=== PATIENT | male | born 1995 | race Caucasian/White ===

== ENCOUNTER 2020-01-29 17:58 | Emergency (ER) | payer SELFPAY ==
[2020-01-29 18:23] VITALS: BP 99/42; PULSE 87; RESP 12; TEMP 35.7; O2SAT 100; BMI 25.9
--- NOTE | 2020-01-29 18:25 | ED_ITS ---
HPI - Alcohol General Chief Complaint: ETOH/Substance Use Stated Complaint: etoh Time Seen by Provider: 01/29/20 18:09 Source: EMS Mode of arrival: EMS Limitations: other ( intoxicated) History of Present Illness HPI narrative: patient has history of PTSD was found intoxicated at home stumbling around and falling no signs of significant head injury was spitting in EMS truck very limited history at this time Related Data Allergies Allergy/AdvReac Type Severity Reaction Status Date / Time No Known Allergies Allergy Verified 01/29/20 18:10 Review of Systems Review of Systems: Yes Unobtainable due to mental status PMFSH Past Medical History Medical History No known health problems Social History Social History Alcohol intake: unknown Smoking Status: Unknown if ever smoked Use of substances other than those prescribed or required for medical reasons: Unknown Physical Exam Vital Signs: Vital Signs: Vital Signs Temp Pulse Resp BP Pulse Ox 01/29/20 21:43 105 H 14 121/65 99 01/29/20 20:18 76 12 102/55 L 99 01/29/20 18:23 96.2 F L 87 12 99/42 L 100 Body Mass Index 25.9 Appearance: Alert. intoxicated. No acute distress. Eyes: Pupils equal, round and reactive to light. ENT: Pharynx normal. head atraumatic normocephalic Neck: Normal inspection. Neck supple. CVS: Normal heart rate and rhythm. Pulses normal. Respiratory: No respiratory distress. Breath sounds normal. Abdomen: Soft and nontender. Skin: Skin warm and dry. Normal skin color. Normal skin turgor. Extremities: No lower extremity edema. Good range of movement Neuro: patient very intoxicated ambulatory in the ER. No motor deficit. Course Course Course Narrative: patient alert oriented relaxed now ambulating in steady gait. Will call his family to take him home patient refused any help to go to detox MDM - Alcohol Lab Data Result diagrams: 01/29/20 19:38 01/29/20 19:37 Labs: Lab Results 01/29/20 01/29/20 01/29/20 Range/Units 19:37 19:37 19:38 WBC 5.6 (4.8-10.8) X10*3/uL RBC 5.47 (4.60-5.80) X10*6/uL Hgb 14.4 (14.0-18.0) g/dl Hct 44.3 (42-52) % MCV 81.0 (80-98) fL MCH 26.3 L (27.0-33.0) pg MCHC 32.5 (31.0-36.0) g/dl RDW 12.3 (11.0-16.0) % Plt Count 246 (160-400) X10*3/uL MPV 9.7 (9.4-12.4) fL Immature Gran % (Auto) 0.2 (0.0-0.4) % Neut % (Auto) 56.8 (45-73) % Lymph % (Auto) 36.0 (20-40) % [place] % (Auto) 6.1 (2-11) % Eos % (Auto) 0.4 (0-4) % Baso % (Auto) 0.5 (0-2) % Lymph # (Auto) 2.0 (1.2-4.9) X10*3/uL [place] # (Auto) 0.3 (0.1-1.2) X10*3/uL Eos # (Auto) 0.0 (0.0-0.4) X10*3/uL Baso # (Auto) 0.0 (0.0-0.2) X10*3/uL Abs Immat Gran (auto) 0.01 (0.00-0.03) X10*3/uL Absolute Neuts (auto) 3.2 (2.0-8.3) X10*3/uL Absolute Nucleated RBC 0.000 (0.0-0.012) X10*3/uL Nucleated RBC % (auto) 0.0 (0.0-0.2) /100WBC Sodium 143 (135-145) mmol/L Potassium 4.1 (3.3-5.1) mmol/l Chloride 106 (96-108) mmol/L Carbon Dioxide 25 (22-29) mmol/L Anion Gap 16 (12-20) BUN 12 (9-16) mg/dL Creatinine 1.40 (0.5-1.4) mg/dL Estim Creat Clear Calc 84.0 Estimated GFR > 60 Random Glucose 98 (60-115) mg/dL Calcium 8.5 (8.4-10.2) mg/dL Magnesium (1.6-2.6) mg/dL Total Bilirubin < 0.2 (0.0-1.0) mg/dL AST 33 (5-37) U/L ALT 42 H (0-40) U/L Alkaline Phosphatase 62 (39-117) U/L Total Protein 7.5 (6.5-8.0) g/dL Albumin 4.8 (3.5-5.0) g/dL Lipase (8-78) U/L Ethyl Alcohol 304 H* mg/dL 01/29/20 Range/Units 19:38 WBC (4.8-10.8) X10*3/uL RBC (4.60-5.80) X10*6/uL Hgb (14.0-18.0) g/dl Hct (42-52) % MCV (80-98) fL MCH (27.0-33.0) pg MCHC (31.0-36.0) g/dl RDW (11.0-16.0) % Plt Count (160-400) X10*3/uL MPV (9.4-12.4) fL Immature Gran % (Auto) (0.0-0.4) % Neut % (Auto) (45-73) % Lymph % (Auto) (20-40) % [place] % (Auto) (2-11) % Eos % (Auto) (0-4) % Baso % (Auto) (0-2) % Lymph # (Auto) (1.2-4.9) X10*3/uL [place] # (Auto) (0.1-1.2) X10*3/uL Eos # (Auto) (0.0-0.4) X10*3/uL Baso # (Auto) (0.0-0.2) X10*3/uL Abs Immat Gran (auto) (0.00-0.03) X10*3/uL Absolute Neuts (auto) (2.0-8.3) X10*3/uL Absolute Nucleated RBC (0.0-0.012) X10*3/uL Nucleated RBC % (auto) (0.0-0.2) /100WBC Sodium (135-145) mmol/L Potassium (3.3-5.1) mmol/l Chloride (96-108) mmol/L Carbon Dioxide (22-29) mmol/L Anion Gap (12-20) BUN (9-16) mg/dL Creatinine (0.5-1.4) mg/dL Estim Creat Clear Calc Estimated GFR Random Glucose (60-115) mg/dL Calcium (8.4-10.2) mg/dL Magnesium 2.4 (1.6-2.6) mg/dL Total Bilirubin (0.0-1.0) mg/dL AST (5-37) U/L ALT (0-40) U/L Alkaline Phosphatase (39-117) U/L Total Protein (6.5-8.0) g/dL Albumin (3.5-5.0) g/dL Lipase 25 (8-78) U/L Ethyl Alcohol mg/dL
[2020-01-29] MEDS: LORazepam 2 MG/ML VIAL IM (18:35)
--- NOTE | 2020-01-29 18:57 | PC.NURSE ---
Pt appeared intoxicated aupon arrival, unable to self contain. Acknowledged and agreed on receiving IM ativan.
[2020-01-29] MEDS: 0.9 % Sodium Chloride 1,000 ML 999 ML IVCONT (19:43)
--- NOTE | 2020-01-29 19:44 | PC.NURSE ---
patient sleeping, unable to assess at this time as he will not answer questions
[2020-01-29 19:55] LABS: MANUAL DIFF FLAG NO
[2020-01-29 19:56] LABS: Basophils Percent Auto 0.5 % (0-2); Eosinophils Percent Auto 0.4 % (0-4); Hematocrit 44.3 % (42-52); Hemoglobin 14.4 g/dl (14.0-18.0); Imm Gran Abs Auto 0.01 X10*3/uL (0.00-0.03); Imm Gran Pct Auto 0.2 % (0.0-0.4); Mean Corpuscular HGB Conc 32.5 g/dl (31.0-36.0); Mean Corpuscular Hemoglobin 26.3 pg (27.0-33.0); Mean Platelet Volume 9.7 fL (9.4-12.4); Monocytes Absolute Auto 0.3 X10*3/uL (0.1-1.2); Monocytes Percent Auto 6.1 % (2-11); Neutrophils Absolute Auto 3.2 X10*3/uL (2.0-8.3); Neutrophils Percent Auto 56.8 % (45-73); Platelet Count 246 X10*3/uL (160-400); Red Blood Count 5.47 X10*6/uL (4.60-5.80); Red Cell Distribution Width 12.3 % (11.0-16.0); White Blood Count 5.6 X10*3/uL (4.8-10.8)
[2020-01-29 20:17] LABS: Ethanol 304 mg/dL
[2020-01-29 20:18] VITALS: BP 102/55; PULSE 76; RESP 12; O2SAT 99
[2020-01-29 20:19] LABS: Lipase 25 U/L (8-78); Magnesium 2.4 mg/dL (1.6-2.6)
[2020-01-29 20:22] LABS: Alanine Aminotransferase 42 U/L (0-40); Albumin Level 4.8 g/dL (3.5-5.0); Alkaline Phosphatase 62 U/L (39-117); Anion Gap 16 (12-20); Aspartate Amino Transferase 33 U/L (5-37); Bilirubin Total < 0.2 mg/dL (0.0-1.0); Blood Urea Nitrogen 12 mg/dL (9-16); Calcium 8.5 mg/dL (8.4-10.2); Carbon Dioxide 25 mmol/L (22-29); Chloride 106 mmol/L (96-108); Estimated Glomerular Filt Rate > 60; Glucose Random 98 mg/dL (60-115); Potassium 4.1 mmol/l (3.3-5.1); Sodium 143 mmol/L (135-145); Total Protein 7.5 g/dL (6.5-8.0)
[2020-01-29 21:43] VITALS: BP 121/65; PULSE 105; RESP 14; O2SAT 99
--- NOTE | 2020-01-29 22:20 | PC.NURSE ---
spoke with pt , on way to pick pt up for safe sober ride. pt agitated in ED stretcher and nausea. spoke with MD Robbins for meds, will medicated per orders. safety maintained. pt has unsteady gate, spitting and yelling at staff stating, I know my phone is here . All pt belongings at bedside with pt, no cellphone found in ED.
[2020-01-29] MEDS: LORazepam 1 MG TABLET 2 MG PO (22:27)
== END 2020-01-29 22:43 | disposition home or self-care (01) ==
LOC: HO.ED 22:41
PROVIDERS: Emergency Provider Internal Medicine
DX: F10.129 Alcohol abuse with intoxication, unspecified (principal); F43.10 Post-traumatic stress disorder, unspecified; Y90.8 Blood alcohol level of 240 mg/100 ml or more
CPT/HCPCS: 36415; 80053; 80320; 83690; 83735; 85025; 96361; 96372; 99284; J2060